=== PATIENT | male | born 1970 | race Caucasian/White ===

== ENCOUNTER → 2019-11-02 15:03 | Outpatient (BNVA) | payer OTHER, SELFPAY | PROVIDERS: Family Provider Family Medicine; PCP Family Medicine; Visit Provider Internal Medicine Rheumatology | DX: M34.9 Systemic sclerosis, unspecified (principal); R06.09 Other forms of dyspnea; I10 Essential (primary) hypertension; I73.00 Raynaud's syndrome without gangrene | CPT/HCPCS: 99214 ==

== ENCOUNTER 2019-11-18 14:26 | Outpatient (CLI) | payer OTHER, SELFPAY ==
--- NOTE | 2019-11-18 15:00 | USCV_ITS ---
Tim Monahan Age: 49 Gender: M : 1970 Exam Date: 11/18/2019 15:16 Ordering Phys: Estefany Kenney MD Technologist: Miguelito Baker [place] [facility] [place]: PULMARY HTN BP: 140 / 85 HR: 56 Rhythm: Sinus Technical Quality: Good MEASUREMENTS (Male / Female) Normal Values 2D ECHO LV Diastolic Diameter PLAX 4.3 cm 4.2 - 5.9 / 3.9 - 5.3 cm LV Systolic Diameter PLAX 2.4 cm IVS Diastolic Thickness 0.8 cm 0.6 - 1.0 / 0.6 - 0.9 cm IVS Systolic Thickness 1.3 cm LVPW Diastolic Thickness 0.9 cm 0.6 - 1.0 / 0.6 - 0.9 cm LVPW Systolic Thickness 1.2 cm LVOT Diameter 2.0 cm LV Ejection Fraction 2D Teich 75.0 % LV Ejection Fraction MOD 2C 70.5 % LV Ejection Fraction 2C AL 70.3 % LA Diameter 3.5 cm LA Width 4.3 cm LA Height 3.7 cm RA Width 3.7 cm RA Height 4.6 cm Aorta at Sinotubular Diameter 2.1 cm M-MODE LV Diastolic Diameter MM 6.5 cm 4.2 - 5.9 / 3.9 - 5.3 cm LV Systolic Diameter MM 3.6 cm LV Ejection Fraction MM Teich 73.7 % IVS Diastolic Thickness MM 0.9 cm 0.6 - 1.0 / 0.6 - 0.9 cm IVS Systolic Thickness MM 1.4 cm LVPW Diastolic Thickness MM 1.1 cm 0.6 - 1.0 / 0.6 - 0.9 cm LVPW Systolic Thickness MM 1.6 cm RV Diastolic Diameter MM 0.6 cm Aortic Annulus Diameter 3.2 cm LA Ao Ratio MM 1.1 MV E Point Septal Separation 0.7 cm DOPPLER AV Peak Velocity 119.0 cm/s LVOT Peak Velocity 97.0 cm/s AV Area Cont Eq vti 2.8 cm squared AV Area Cont Eq pk 2.6 cm squared MV Area PHT 5.0 cm squared Mitral E to A Ratio 1.0 MV E' Velocity 9.0 cm/s Mitral E to MV E' Ratio 7.7 Mitral E to LV E' Lateral Ratio 7.8 Mitral E to LV E' Septal Ratio 7.7 TR Peak Velocity 241.0 cm/s TR Peak Gradient 23.3 mmHg Right Atrial Pressure 3.0 mmHg Pulmonary Artery Systolic Pressu 26.2 mmHg PV Peak Velocity 106.0 cm/s FINDINGS Left Ventricle Normal left ventricular cavity size. Normal left ventricular systolic function. No regional wall motion abnormalities. Left ventricular ejection fraction is estimated at 65 %. Grade I/IV diastolic dysfunction (abnormal relaxation filling pattern), normal to mildly elevated filling pressures. Right Ventricle The right ventricle is normal in size and function. Right Atrium The right atrium is normal in size. Left Atrium The left atrium is normal in size. Mitral Valve Structurally normal mitral valve without significant stenosis or prolapse. There is no mitral regurgitation. Aortic Valve Mild aortic valve calcification. No aortic valve stenosis. Trace aortic valve regurgitation. Tricuspid Valve Trace tricuspid valve regurgitation. Pulmonic Valve Structurally normal pulmonic valve without significant stenosis. There is no pulmonic regurgitation. Pericardium Normal pericardium without effusion. Aorta Normal ascending aorta dimension. CONCLUSIONS 1-Normal left ventricular cavity size. Normal left ventricular systolic function. No regional wall motion abnormalities. Left ventricular ejection fraction is estimated at 65 %. Grade I/IV diastolic dysfunction (abnormal relaxation filling pattern), normal to mildly elevated filling pressures. 2-There is no pericardial effusion. 3-Pulmonary artery systolic pressure is within normal limits. 4-No significant valve abnormalities. 5-Right atrial pressure is around 5 mm of mercury. 6-No significant change since the prior echocardiogram study of 11/27/2016. Natalie Delgado MD (Electronically Signed) Final Date: 19 November 2019 13:25 S
== END 2019-11-18 14:27 | disposition home or self-care (01) ==
LOC: RAD 14:34
PROVIDERS: Family Provider Family Medicine; PCP Family Medicine; Visit Provider Internal Medicine Rheumatology
DX: I27.20 Pulmonary hypertension, unspecified (principal); M34.9 Systemic sclerosis, unspecified; R06.09 Other forms of dyspnea
CPT/HCPCS: 93306

== ENCOUNTER → 2020-03-14 10:19 | Outpatient (BNVA) | payer OTHER, SELFPAY | PROVIDERS: Family Provider Family Medicine; PCP Family Medicine; Visit Provider Internal Medicine Rheumatology | DX: M34.9 Systemic sclerosis, unspecified (principal); Z79.899 Other long term (current) drug therapy; I73.00 Raynaud's syndrome without gangrene; K21.9 Gastro-esophageal reflux disease without esophagitis; M54.9 Dorsalgia, unspecified; I10 Essential (primary) hypertension | CPT/HCPCS: 99214 ==

== ENCOUNTER 2020-03-28 14:49 | Outpatient (CLI) | payer OTHER, SELFPAY ==
--- NOTE | 2020-03-28 14:55 | XR_ITS ---
WS: [id number] XR chest 2V* [id number] REASON FOR EXAM: Shortness of breath FINDINGS: The cardiac silhouette is normal. The vascular markings are normal bilaterally no evidence suggestive of pulmonary embolus or pulmonary emphysema. There is no pneumonia, pleural effusion, pulmonary edema, or mass effect. The hilum and apices are normal. No osseous abnormalities. There is mild pectus excavatum changes. XR/XR chest 2V* [id number] IMPRESSION: Negative chest for acute findings.
== END 2020-03-28 14:50 | disposition home or self-care (01) ==
LOC: RAD 14:52
PROVIDERS: PCP Family Medicine; Visit Provider Internal Medicine Critical Care Medicine
DX: R06.02 Shortness of breath (principal)
CPT/HCPCS: 71046

== ENCOUNTER 2020-05-21 08:19 | Outpatient (CLI) | payer OTHER, SELFPAY ==
--- NOTE | 2020-05-21 15:32 | PFTS_ITS ---
Date of Study:05/21/20 Date of Dictation: MECHANICS: Forced vital capacity (FVC) is reduced. Forced expiratory volume in one second (FEV1) is normal. FEV1/FVC is normal. FLOW VOLUME LOOP: Normal. LUNG VOLUMES: Total lung capacity (TLC) is normal. Residual volume (RV) is normal. DIFFUSING CAPACITY FOR CARBON MONOXIDE: Normal. INTERPRETATION: The pulmonary function tests are consistent with minimal restriction. Lung volumes are normal. Gas exchange is normal. MTDD
== END 2020-05-21 08:20 | disposition home or self-care (01) ==
LOC: RT 08:22
PROVIDERS: PCP Family Medicine; Visit Provider Internal Medicine Critical Care Medicine
DX: M34.9 Systemic sclerosis, unspecified (principal)
CPT/HCPCS: 94010; 94726; 94729

== ENCOUNTER → 2020-07-16 08:42 | Outpatient (BNVA) | payer OTHER, SELFPAY | PROVIDERS: PCP Family Medicine; Visit Provider Internal Medicine Rheumatology | DX: M34.9 Systemic sclerosis, unspecified (principal); Z79.899 Other long term (current) drug therapy; I73.00 Raynaud's syndrome without gangrene; M34.89 Other systemic sclerosis; M19.90 Unspecified osteoarthritis, unspecified site; K21.9 Gastro-esophageal reflux disease without esophagitis; R91.8 Other nonspecific abnormal finding of lung field | CPT/HCPCS: 99214 ==

== ENCOUNTER → 2020-11-12 15:45 | Outpatient (BNVA) | payer OTHER, SELFPAY | PROVIDERS: PCP Family Medicine; Visit Provider Internal Medicine Rheumatology | DX: M34.89 Other systemic sclerosis (principal); M19.90 Unspecified osteoarthritis, unspecified site; Z79.899 Other long term (current) drug therapy; I73.00 Raynaud's syndrome without gangrene; I10 Essential (primary) hypertension; R60.9 Edema, unspecified; R73.9 Hyperglycemia, unspecified; K21.9 Gastro-esophageal reflux disease without esophagitis | CPT/HCPCS: 36415; 85025; 99214 ==

== ENCOUNTER → 2021-03-04 10:11 | Outpatient (BNVA) | payer OTHER, SELFPAY | PROVIDERS: PCP Family Medicine; Visit Provider Internal Medicine Rheumatology | DX: M34.89 Other systemic sclerosis (principal); M19.90 Unspecified osteoarthritis, unspecified site; Z79.899 Other long term (current) drug therapy; I73.00 Raynaud's syndrome without gangrene; K21.9 Gastro-esophageal reflux disease without esophagitis; I10 Essential (primary) hypertension; R60.9 Edema, unspecified | CPT/HCPCS: 99214 ==

== ENCOUNTER → 2021-07-08 08:53 | Outpatient (BNVA) | payer OTHER, SELFPAY | PROVIDERS: PCP Family Medicine; Visit Provider Internal Medicine Rheumatology | DX: M34.89 Other systemic sclerosis (principal); M19.90 Unspecified osteoarthritis, unspecified site; Z79.899 Other long term (current) drug therapy; I73.00 Raynaud's syndrome without gangrene; K21.9 Gastro-esophageal reflux disease without esophagitis; I10 Essential (primary) hypertension; R60.9 Edema, unspecified; R73.9 Hyperglycemia, unspecified; F41.9 Anxiety disorder, unspecified; R91.8 Other nonspecific abnormal finding of lung field; Z71.89 Other specified counseling | CPT/HCPCS: 99214 ==

== ENCOUNTER → 2025-04-04 15:46 | Outpatient (BNVA) | payer SELFPAY | PROVIDERS: PCP Family Medicine; Visit Provider Internal Medicine Rheumatology | DX: Z79.899 Other long term (current) drug therapy (principal); M34.89 Other systemic sclerosis; Z71.89 Other specified counseling; M19.90 Unspecified osteoarthritis, unspecified site; I73.00 Raynaud's syndrome without gangrene; K21.9 Gastro-esophageal reflux disease without esophagitis | CPT/HCPCS: 36415; 80076; 82565; 85025; 85651; 86140 ==

== ENCOUNTER 2025-07-12 13:02 | Outpatient (CLI) | payer SELFPAY ==
[2025-07-12 13:27] LABS: Hematocrit 37.6 % (37-53); Hemoglobin 12.70 g/dL (11.27-16.99); Mean Corpuscular HGB Conc 33.8 g/dL (30-55); Mean Corpuscular Hemoglobin 33.3 pg (27-33); Mean Corpuscular Volume 98.7 fl (82-101); Nucleated Red Blood Cells % 0 %; Platelet Count 221 10^3/cmm (157-399); Red Blood Count 3.81 10^6/uL (3.85-5.65); White Blood Count 4.03 10^3/uL (3.29-11.43)
[2025-07-12 13:56] LABS: Alanine Aminotransferase 14 U/L (0-41); Albumin Level 4.5 g/dL (3.5-5.2); Alkaline Phosphatase 83 U/L (40-130); Aspartate Amino Transferase 28 U/L (0-40); Globulin 3.2 g/dL (1.3-4.6); Total Protein 7.7 g/dL (6.6-8.7)
== END 2025-07-12 13:03 | disposition home or self-care (01) ==
PROVIDERS: PCP Family Medicine; Visit Provider Internal Medicine Rheumatology
DX: Z79.899 Other long term (current) drug therapy (principal)
CPT/HCPCS: 36415; 80076; 82565; 85025; 85651; 86140

== ENCOUNTER 2025-09-21 05:10 | Emergency (ER) | payer SELFPAY ==
--- OUTSIDE RECORDS SUMMARY | 2025-09-21 05:17 | XMS_ITS | Clinical Summary ---
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
[2025-09-21 05:19] VITALS: BP 149/84; PULSE 70; RESP 16; TEMP 36.4; O2SAT 99; BMI 27.3
--- NOTE | 2025-09-21 05:23 | ED_ITS ---
HPI - Abdominal Pain 2 General: Chief Complaint: Abdominal Pain Stated Complaint: ABD Pain Time Seen by Provider: 09/21/25 05:19 History of Present Illness: 55-year-old male presents emergency room clinic epigastric pain has been going on all night no vomiting but has been moderately nauseous denies any hematemesis coffee-ground emesis denies any hematochezia or melena. No dysuria urgency or frequency. Does have a history of reflux. No chest pain no associated shortness of breath. Has not noted anything that exacerbates or relieves. Associated Symptoms: Denies chills, dysuria and fever(s) Related Data Previous Rx's ?Medication ?Instructions ?Recorded prednisone 10 mg tablet See Rx Instructions PO .COMP PAVAN 07/25/24 PRN joint pain #60 tabs hydroxychloroquine 200 mg tablet See Rx Instructions . Route 04/04/25 .COMPLEX #180 tabs nifedipine 30 mg tablet,extended See Rx Instructions . Route 04/04/25 release 24 hr .COMPLEX #180 tabs omeprazole 40 mg capsule,delayed See Rx Instructions . Route 04/04/25 release .COMPLEX #180 caps sulfasalazine 500 mg tablet 0.5 g PO BID #180 tabs 08/19 azathioprine 50 mg tablet See Rx Instructions .Route 0 06/15/25 .COMPLEX #90 tabs sucralfate 1 gram tablet (Carafate) 1 g PO Q6H PRN sto mach upset 4 09/21/25 weeks #112 tabs Allergies Allergy/AdvReac Type Severity Reaction Status Date / Time No Known Allergies Allergy Verified 04/04/25 14:29 Review of Systems 2 Const: Denies: fever(s) or chills Card: Denies: chest pain Resp: Denies: dyspnea GI: Denies: abdominal pain : Denies: dysuria, urinary frequency or urinary urgency Musc: Denies: neck pain or back pain Skin/Breast: Denies: rash PFSH ED 2 PFSH: Medical History Diffuse cutaneous systemic sclerosis Trigeminal neuralgia of right side of face Immunization counseling High risk medication use Raynaud disease GERD (gastroesophageal reflux disease) Inflammatory arthritis Polymyalgia Scleroderma, diffuse Surgical History No pertinent past surgical history Family History Other CAD (coronary artery disease) Rheumatoid arthritis Systemic lupus erythematosus (SLE) in adult Denies family history of Diabetes Cancer Hypertension Stroke Social History Smoking and tobacco/nicotine status: never used tobacco/nicotine Second hand smoke exposure: No Alcohol intake: never Substance/Drug Use: never Lives independently: Yes Household members: spouse Marital status: Current occupational status: employed Current occupation: [employer] Associate Current occupational exposures/hazards: No Do you think of yourself as: Straight/Heterosexual Current gender identity: Male Physical Exam 2 Const: GENERAL APPEARANCE: cooperative ORIENTATION/CONSCIOUSNESS: Yes awake, Yes oriented to person, Yes oriented to place and Yes oriented to time HENMT: COMMON NORMALS: normocephalic, atraumatic and hearing grossly normal bilaterally HEAD & SCALP: normocephalic and atraumatic Resp: COMMON NORMALS: normal respiratory effort, No retractions, No use of accessory muscles and clear to auscultation bilaterally AUSCULTATION: clear to auscultation bilaterally Cardio: COMMON NORMALS: regular rate, regular rhythm and No murmurs present (Cardio) RATE: regular rate RHYTHM: regular rhythm GI: COMMON NORMALS: Soft to palpation and No hepatosplenomegaly present A USCULTATION: Yes normoactive bowel sounds PALPATION: Yes Soft to palpation, No Tenderness to palpation present (GI), No Guarding due to palpation present (GI) and Yes No hepatosplenomegaly present Extremity: COMMON NORMALS: normal to inspection, capillary refill normal, no clubbing, cyanosis or edema, no calf tenderness and no pedal edema Neuro: SENSORIUM/ORIENTATION: Yes oriented to person, Yes oriented to place and Yes oriented to time Skin: COMMON NORMALS: no rashes or lesions noted GENERAL SKIN EXAM: no rashes or lesions noted Course 2 Vital Signs: Vital signs: Vital Signs Temperature 97.5 F L 09/21/25 05:19 Pulse Rate 68 09/21/25 06:18 Respiratory Rate 16 09/21/25 06:18 Blood Pressure 139/85 09/21/25 06:18 Pulse Oximetry 97 09/21/25 06:18 MDM - Abdominal Pain Medical Decision Making Medical decision making Social determinants: None I reviewed the patient's medical record. I reviewed the patient's current home meds Alternate historians: None Differential diagnosis pancreatitis, gastric ulcer gastroesophageal reflux esophageal spasm Lab Review: Labs reviewed no clinically significant finding Imaging: None Assessment of risk: Level of risk: Low Hospitalization considerations: Not considered Reexamination: Improved after GI cocktail Assessment and plan: Improved after GI cocktail labs normal EKG unremarkable patient has had some dietary indiscretions which exacerbated his reflux. Continues Prilosec dietary suggestions given follow-up with primary care Medical Records I reviewed the patient's medical records. Lab Data I reviewed the patient's lab results. 09/21/25 05:30 09/21/25 05:30 Labs/Radiology: Laboratory Results WBC 6.28 10^3/uL (3.29-11.43) 09/21/25 05:30 RBC 3.85 10^6/uL (3.85-5.65) 09/21/25 05:30 Hgb 12.40 g/dL (11.27-16.99) 09/21/25 05:30 Hct 37.7 % (37-53) 09/21/25 05:30 MCV 97.9 fl (82-101) 09/21/25 05:30 MCH 32.2 pg (27-33) 09/21/25 05:30 MCHC 32.9 g/dL (30-55) 09/21/25 05:30 RDW 14.9 % (12.1-15.1) 09/21/25 05:30 Plt Count 228 10^3/cmm (157-399) 09/21/25 05:30 MPV 10.3 fL (7.4-10.4) 09/21/25 05:30 Neut % (Auto) 77.2 % 09/21/25 05:30 Lymph % (Auto) 9.7 % 09/21/25 05:30 [place] % (Auto) 10.4 % 09/21/25 05:30 Eos % (Auto) 1.6 % 09/21/25 05:30 Baso % (Auto) 0.6 % 09/21/25 05:30 Neut # (Auto) 4.85 10^3/uL (1.8-7.7) 09/21/25 05:30 Lymph # (Auto) 0.6 10^3/uL (0.8-4.8) L 09/21/25 05:30 [place] # (Auto) 0.7 10^3/uL (0.2-0.9) 09/21/25 05:30 Eos # (Auto) 0.1 10^3/uL (0.0-0.8) 09/21/25 05:30 Baso # (Auto) 0.0 10^3/uL (0.0-0.1) 09/21/25 05:30 Nucleated RBC % (auto) 0 % 09/21/25 05:30 Nucleated RBCs # 0.0 /100WBC 09/21/25 05:30 Sodium 140 mmol/L (136-145) 09/21/25 05:30 Potassium 3.8 mmol/L (3.5-5.1) 09/21/25 05:30 Chloride 102 mmol/L (98-107) 09/21/25 05:30 Carbon Dioxide 28 mmol/L (22-29) 09/21/25 05:30 Anion Gap 13.8 (5-19) 09/21/25 05:30 BUN 7 mg/dL (6-20) 09/21/25 05:30 Creatinine 0.8 mg/dL (0.7-1.2) 09/21/25 05:30 GFR Calculation 100.4 mL/min (90-130) 09/21/25 05:30 Glucose 128 mg/dL (65-115) H 09/21/25 05:30 Calculated Osmolality 290 mOsm/kg (285-295) 09/21/25 05:30 Calcium 9.2 mg/dL (8.5-10.5) 09/21/25 05:30 Total Bilirubin 0.5 mg/dL (0.15-1.2) 09/21/25 05:30 AST 21 U/L (0-40) 09/21/25 05:30 ALT 11 U/L (0-41) 09/21/25 05:30 Alkaline Phosphatase 91 U/L (40-130) 09/21/25 05:30 Total Protein 7.5 g/dL (6.6-8.7) 09/21/25 05:30 Albumin 4.6 g/dL (3.5-5.2) 09/21/25 05:30 Globulin 2.9 g/dL (1.3-4.6) 09/21/25 05:30 Lipase 34 U/L (13-60) 09/21/25 05:30 No radiology studies performed this visit EKG Data EKG 1: I personally reviewed and interpreted this EKG as follows: Interpretation: 09/21/2025 5:36 AM sinus rhythm rate of 68 [place] interval 131 QTc [address] elevation or changes. No previous EKGs for comparison Discharge Plan Discharge Patient Disposition: Home Clinical Impression: GERD (gastroesophageal reflux disease) Qualifiers: Esophagitis presence: without esophagitis Qualified Code(s): K21.9 - Gastro- esophageal reflux disease without esophagitis Condition: Stable Prescriptions: New sucralfate [Carafate] 1 gram tablet 1 g PO Q6H PRN (Reason: stomach upset) 28 Days Qty: 112 0RF No Action prednisone 10 mg tablet See Rx Instructions PO .COMPLEX PRN (Reason: joint pain) Qty: 60 1RF Rx Instructions: take 1 tab daily for 4-6 days prn joint pain flare PO PRN; hydroxychloroquine 200 mg tablet See Rx Instructions .ROUTE .COMPLEX Qty: 180 1RF Dose Instruction: TAKE 1 TABLET BY MOUTH TWICE A DAY Rx Instructions: TAKE 1 TABLET BY MOUTH TWICE A DAY nifedipine 30 mg tablet extended release 24hr See Rx Instructions .ROUTE .COMPLEX Qty: 180 1RF Dose Instruction: TAKE 1 TABLET BY MOUTH TWICE A DAY Rx Instructions: TAKE 1 TABLET BY MOUTH TWICE A DAY omeprazole 40 mg capsule,delayed release(DR/EC) See Rx Instructions .ROUTE .COMPLEX Qty: 180 1RF Dose Instruction: TAKE ONE CAPSULE BY MOUTH TWICE DAILY Rx Instructions: TAKE ONE CAPSULE BY MOUTH TWICE DAILY sulfasalazine 500 mg tablet 0.5 g PO BID Qty: 180 1RF Rx Instructions: give with food (meal/snack) azathioprine 50 mg tablet See Rx Instructions .ROUTE .COMPLEX Qty: 90 5RF Dose Instruction: TAKE TWO TABLETS BY MOUTH EVERY MORNING AND TAKE ONE TABLET At Bedtime Rx Instructions: TAKE TWO TABLETS BY MOUTH EVERY MORNING AND TAKE ONE TABLET At Bedtime Discharge Orders: Discharge ED (Routine); Ordered 09/21/25 Ordered By: David Perkins Referrals: Shelby Devries MD [Primary Care Provider, Family Practice] Discharge Diet: As Directed Discharge Activity: Resume usual activity Patient Instructions: Diet for Stomach Ulcers and Gastritis (ED), GERD (Gastroesophageal Reflux Disease) (ED), Abdominal Pain (ED), Opioid Safety, Pain Management, Patient Portal & [place] Instructions Activity Restrictions/Additional Instructions: Thank you for choosing [facility] for your healthcare needs today. It is very important that you follow up as instructed or that you return to the Emergency Department should you have concerns or if your condition changes or worsens in any way. Emergency department visits are focused on emergent conditions, in some cases you may require further evaluation on an outpatient basis. You were seen in the emergency room with complaint of epigastric discomfort. In reviewing your history you would related to drink increased amounts of soda and other foods that were not helpful with your history of reflux. He would reported significant improvement with the GI cocktail you are given. EKG appeared normal. Recommend avoiding carbonated beverages. Follow the diet instructions given of these discharge instructions. Continue to use your omeprazole regularly you can use the Carafate every 6 hours as needed for heartburn symptoms or stomach upset. You should not take the Carafate within 1 to 2 hours of taking Prilosec. (Please note that included in your discharge packet is information concerning opioid safety and pain management. This information is given to all patients were discharged from the ER regardless of their discharge diagnosis or the medicines they usually take or are prescribed.) Print Language: Nepali Coding Level of Care Code ED Lead Housekeeper for Aletha Pina
[2025-09-21] MEDS: lidocaine 2% viscous 15 ML, aluminum-mag hydrox-simethicon 30 ML, sucralfate oral liq 1 GM PO (05:35)
--- NOTE | 2025-09-21 05:36 | ECG_ITS ---
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 Measurements Intervals [place] Rate: 68 P: 33 MO: 131 QRS: -1 QRSD: 111 T: 13 QT: 395 QTc: 420 Interpretive Statements SINUS RHYTHM MINIMAL VOLTAGE CRITERIA FOR LVH, CONSIDER NORMAL VARIANT [MEETS CRITERIA IN ONE OF: R(aVL), S(V1), R(V5), R(V5/V6)+S(V1)] No previous ECG available for comparison Electronically Signed On 09-21-2025 17:23:58 BURR FILER by Roya Cohen M.D. [email or web address]
[2025-09-21 05:42] LABS: Hematocrit 37.7 % (37-53); Hemoglobin 12.40 g/dL (11.27-16.99); Mean Corpuscular HGB Conc 32.9 g/dL (30-55); Mean Corpuscular Hemoglobin 32.2 pg (27-33); Mean Corpuscular Volume 97.9 fl (82-101); Nucleated Red Blood Cells % 0 %; Platelet Count 228 10^3/cmm (157-399); Red Blood Count 3.85 10^6/uL (3.85-5.65); White Blood Count 6.28 10^3/uL (3.29-11.43)
[2025-09-21 06:00] LABS: Alanine Aminotransferase 11 U/L (0-41); Albumin Level 4.6 g/dL (3.5-5.2); Alkaline Phosphatase 91 U/L (40-130); Anion Gap 13.8 (5-19); Aspartate Amino Transferase 21 U/L (0-40); Blood Urea Nitrogen 7 mg/dL (6-20); Calcium 9.2 mg/dL (8.5-10.5); Carbon Dioxide 28 mmol/L (22-29); Chloride 102 mmol/L (98-107); Creatinine Clr Calc Pharmacy 105.3817; Globulin 2.9 g/dL (1.3-4.6); Glucose 128 mg/dL (65-115); Lipase 34 U/L (13-60); Osmolality Calculated 290 mOsm/kg (285-295); Potassium 3.8 mmol/L (3.5-5.1); Sodium 140 mmol/L (136-145); Total Protein 7.5 g/dL (6.6-8.7)
[2025-09-21 06:18] VITALS: BP 139/85; PULSE 68; RESP 16; O2SAT 97
== END 2025-09-21 06:19 | disposition home or self-care (01) ==
PROVIDERS: Emergency Provider Family Medicine; PCP Family Medicine
DX: K21.9 Gastro-esophageal reflux disease without esophagitis (principal)
CPT/HCPCS: 80053; 83690; 85025; 93005; 99284; J9999